=== PATIENT | female | born 1960 | race Asian ===

== ENCOUNTER → 2020-07-06 | Outpatient (CLI) | payer OTHER | LOC: INF 08:10 | PROVIDERS: ATTEND Internal Medicine | DX: Z23 Encounter for immunization (principal) | CPT/HCPCS: 96372 ==

== ENCOUNTER 2020-07-30 14:37 | Outpatient (CLI) | payer OTHER | END 2020-07-30 23:59 | disposition home or self-care (01) | LOC: INF 14:37 | PROVIDERS: ATTEND Internal Medicine | DX: Z23 Encounter for immunization (principal) | CPT/HCPCS: 96372 ==